=== PATIENT | male | born 1950 | race African-American/Black ===

== ENCOUNTER 2017-02-03 22:26 | Inpatient (IN) | payer MEDICARE ==
--- NOTE | ~2017-02-03 | PN ---
Unit #: [id number] #: [id number] Patient: ZAY GUERRERO [id number] [facility] [address] [place] [address] [id number] MR#: [id number] NAME: ZAY GUERRERO ROOM: P131 Age: 66 Sex: M Admission Date: 02/04/2017 : 1950 Attending Physician: Rodriguez Osorio M.D. Admitting Physician: Rodriguez Osorio M.D. Primary Care Physician: Primary Care Physician Niyah MAGAÑA NOTES DATE OF SERVICE: 02/17/2017 SUBJECTIVE Mr. Guerrero is a 66-year-old male who was seen today and chart was reviewed and case was discussed with the staff. He has been anxious, withdrawn, and rather seclusive to himself. Meanwhile, he has been cooperative with treatment recommendations and has been taking medications and tolerating them fairly well with no reported side effects. MENTAL STATUS EXAMINATION An elderly male who was casually dressed with fair personal hygiene, appears to be in no acute distress or discomfort. He was awake and alert on interaction with intact orientation. His mood was anxious with a congruent affect. He denies any suicidal or homicidal ideations. His insight and judgment remain slightly impaired. TREATMENT PLAN 1. We will continue him on his current treatment protocol. We will monitor his response to the medications and make further adjustments as needed. 2. We will continue to follow up. Dictated by... Jerica Bravo/fabiol TD: 02/18/2017 06:48 JOB #: [id number] FREDY PROGRESS NOTES Page 1 of 1 X Rodriguez Osorio MD PROGRESS NOTE
--- NOTE | ~2017-02-03 | DS ---
Unit #: [id number] #: [id number] [facility] [id number] [facility] [address] [place] [address] [id number] I MR#: [id number] NAME: ZAY GUERRERO ROOM: P131 Age: 66 Sex: M Admission Date: 02/04/2017 : 1950 Discharge Date: 02/18/2017 Attending Physician: Rodriguez Osorio M.D. Primary Care Physician: Primary Care Physician No DISCHARGE SUMMARY IDENTIFYING DATA Mr. Guerrero is a 66-year-old single, disabled, male who is a resident of [place], [place], and was transferred to us from [facility] at [facility]. DISCHARGE DIAGNOSES Psychiatric: Schizoaffective disorder, bipolar type, most recent episode manic with psychosis. Medical: Hypertension, diabetes mellitus, seizure disorder, benign prostatic hypertrophy, history of deep venous thrombosis. Stressors: Moderate psychosocial stressors. HISTORY OF PRESENT ILLNESS Please see initial psychiatric evaluation for details. PAST PSYCHIATRIC HISTORY Please see initial psychiatric evaluation for details. PAST MEDICAL HISTORY Please see initial psychiatric evaluation for details. HOSPITAL COURSE The patient was admitted to the adult psychiatric unit at [facility] and was oriented to the hospital environment. Routine p.r.n. medications were initiated and started back on his home medications, and Depakote and Risperdal were initiated. The patient was seen to be acutely psychotic and manic and delusional. Upon initial presentation, it was difficult to be reasoned with carry on any meaningful conversation and was out of touch with reality, and has history of poor compliance with medication and as such, I recommended the patient to be on a long-acting injectable antipsychotic, however, the patient denied that option, however, he was taking Risperdal and was able to show a really good and therapeutic response and was found out that he does good on Risperdal except that he has history of poor compliance with medications outside of the hospital and once he started doing better, I am reasoned with him again about the importance of long-acting injectable antipsychotic and he was then able to make reasonable conversation was agreeable to that and as such, was given both the loading doses of Invega Sustenna 234 mg intramuscular on day one and 156 mg intramuscular on day 6. Followed by which, it was decided that he will be discharged home and will continue treatment on an outpatient basis or monthly injection through Our long-acting injectable clinic. DISCHARGE MEDICATIONS Unit #: [id number] #: [id number] Patient: ZAY GUERRERO Depakote 1000 mg b.i.d. for mood disorder and Invega Sustenna 156 mg intramuscular every 30 days. DISCHARGE CONDITION Stable. PROGNOSIS Fair. Dictated by... Jerica Bravo/luis TD: 02/18/2017 22:37 JOB #: [id number] DISCHARGE SUMMARY Page 1 of 1 X Rodriguez Osorio MD X DISCHARGE SUMMARY
--- NOTE | ~2017-02-03 | PN ---
Unit #: [id number] #: [id number] Patient: ZAY GUERRERO [id number] [facility] [address] [place] [address] [id number] I MR#: [id number] NAME: ZAY GUERRERO ROOM: P131 Age: 66 Sex: M Admission Date: 02/04/2017 : 1950 Attending Physician: Rodriguez Osorio M.D. Admitting Physician: Rodriguez Osorio M.D. Primary Care Physician: Primary Care Physician Niyah MAGAÑA NOTES DATE OF SERVICE 02/15/2017 DISCUSSION Mr. Guerrero is a 66-year-old male who was seen today. Chart was reviewed and case was discussed with the staff. He has been calmer and rather seclusive to himself but has not shown any agitation or aggression and has been compliant with the treatment recommendations. MENTAL STATUS EXAMINATION An elderly male who is casually dressed with fair personal hygiene, appears to be in no acute distress or discomfort. The patient was awake and alert with impaired attention and concentration. Mood is anxious with congruent affect. He denies any suicidal or homicidal ideations. His insight and judgment remain slightly impaired. TREATMENT PLAN 1. We will continue him on his current medications and treatment protocol. We will monitor his response to the medications and make further adjustments as needed. 2. We will continue to follow up. Dictated by... Rodriguez Osorio M.D. IAA/sarikag TD: 02/15/2017 15:09 JOB #: [id number] PEARUKHSANA PROGRESS NOTES Page 1 of 1 X Rodriguez Osorio MD PROGRESS NOTE
--- NOTE | ~2017-02-03 | PN ---
Unit #: [id number] #: [id number] Patient: ZAY GUERRERO [id number] [facility] [address] [place] [address] [id number] I MR#: [id number] NAME: ZAY GUERRERO ROOM: P131 Age: 66 Sex: M Admission Date: 02/04/2017 : 1950 Attending Physician: Rodriguez Osorio M.D. Admitting Physician: Rodriguez Osorio M.D. Primary Care Physician: Primary Care Physician Niyah DANIEL PROGRESS NOTES DATE OF SERVICE: 02/16/2017 SUBJECTIVE Mr. Guerrero is a 66-year-old male who was seen today and chart was reviewed and case was discussed with the staff. He has been anxious, withdrawn, and rather seclusive to himself, though he has not shown any agitation or aggression, and has been taking the medications and tolerating them fairly well with no reported side effects. MENTAL STATUS EXAMINATION An elderly male who was casually dressed with fair personal hygiene, appears to be in no acute distress or discomfort. He was awake and alert with impaired attention and concentration. His mood was anxious with a congruent affect. He denies any suicidal or homicidal ideations. His insight and judgment remain slightly impaired. TREATMENT PLAN 1. We will continue him on his current treatment protocol. We will monitor his response to the medications and make further adjustments as needed. 2. We will continue to follow up. Dictated by... Jerica Bravo/fabiol TD: 02/18/2017 00:56 JOB #: [id number] FREDY PROGRESS NOTES Page 1 of 1 X Rodriguez Osorio MD PROGRESS NOTE
--- NOTE | ~2017-02-03 | PN ---
Unit #: [id number] #: [id number] Patient: ZAY GUERRERO [id number] [facility] [address] [place] [address] [id number] I MR#: [id number] NAME: ZAY GUERRERO ROOM: P116 Age: 66 Sex: M Admission Date: 02/04/2017 : 1950 Attending Physician: Rodriguez Osorio M.D. Admitting Physician: Jerica Bravo PROGRESS NOTES DATE OF SERVICE: 02/08/2017 SUBJECTIVE Mr. Guerrero is a 66-year-old male, who was seen today and chart reviewed and case was discussed with the staff. He has been anxious, withdrawn, rather seclusive to himself. He has been exhibiting bizarre behavior with looseness of associations and brooks like symptoms. MENTAL STATUS EXAMINATION An elderly male, who was casually dressed with fair personal hygiene, appears to be in no acute distress or discomfort. He was awake and alert with impaired attention and concentration. His mood was anxious with a congruent affect. He denies any suicidal or homicidal ideations. His insight and judgment remain slightly impaired. TREATMENT PLAN 1. We will continue him on his current treatment protocol. We will monitor his response and make further adjustments as needed. 2. We will continue to follow up. Dictated by... Jerica Bravo/fabiol TD: 02/09/2017 20:02 JOB #: [id number] FREDY PROGRESS NOTES Page 1 of 1 X Rodriguez Osorio MD PROGRESS NOTE
--- NOTE | ~2017-02-03 | PN ---
Unit #: [id number] #: [id number] Patient: ZAY GUERRERO [id number] [facility] [address] [place] [address] [id number] I MR#: [id number] NAME: ZAY GUERRERO ROOM: 16 Age: 66 Sex: M Admission Date: 02/04/2017 : 1950 Attending Physician: Rodriguez Osorio M.D. Admitting Physician: Rodriguez Osorio M.D. Primary Care Physician: Primary Care Physician Niyah MAGAÑA NOTES DATE 02/09/2017 DISCUSSION Mr. Guerrero is a 66-year-old, male who was seen today and chart was reviewed and case was discussed with the staff. He has anxious, withdrawn and seclusive to himself still rambling quite a bit though it appears that he has been showing some improvement and has been able to carry on conversation that I comprehend better than I did before and he is making much sense in communication. Meanwhile, he has been taking the medication and tolerating them fairly well with no reported side effects. MENTAL STATUS EXAM An elderly male who was casually dressed with fair personal hygiene, appears to be in no acute distress or discomfort. He was awake and alert with impaired attention and concentration. His mood was anxious with congruent affect. His speech was slow and tangential. Thought processes were disorganized with some looseness of associations and flight of ideas. His insight and judgement remains significantly impaired. TREATMENT PLAN 1. We will continue him on his current medications and treatment protocol. We will monitor his response and make further adjustments as needed. 2. We will continue to follow up. Dictated by... Jerica Bravo/priti TD: 02/10/2017 04:57 JOB #: [id number] Unit #: [id number] #: [id number] Patient: ZAY GUERRERO PROGRESS NOTES Page 1 of 1 X Rodriguez Osorio MD PROGRESS NOTE
--- NOTE | ~2017-02-03 | PN ---
Unit #: [id number] #: [id number] Patient: ZAY GUERRERO [id number] [facility] [address] [place] [address] [id number] I MR#: [id number] NAME: ZAY GUERRERO ROOM: 31 Age: 66 Sex: M Admission Date: 02/04/2017 : 1950 Attending Physician: Rodriguez Osorio M.D. Admitting Physician: Rodriguez Osorio M.D. Primary Care Physician: Primary Care Physician Niyah MAGAÑA NOTES DATE OF SERVICE 02/13/2017 DISCUSSION Mr. Guerrero is a 66-year-old male who was seen today. Chart was reviewed and case was discussed with the staff. He has been doing fairly well and appears to be calming down and still has been maintaining some brooks and psychosis. He does not appear to be as agitated and irritable and delusional as he was on initial presentation and initially has refused to take Invega Sustenna in the early phases of treatment where he was very delusional. However, since he is making more sense now, we discussed the option again, and he is agreeable to take Invega Sustenna. We will recommend initiating the trials and maintaining treatment on outpatient basis as he is scheduled to leave the hospital after the weekend. MENTAL STATUS EXAMINATION An elderly male who is casually dressed with fair personal hygiene, appears to be in no acute distress or discomfort. The patient was awake and alert on interaction with intact orientation. His mood is anxious with congruent affect. He denies any suicidal or homicidal ideations. His insight and judgment remain slightly impaired. TREATMENT PLAN 1. We will continue him on his current treatment protocol. We will monitor his response to the medications and make further adjustments as needed. 2. We will continue to follow up. Dictated by... Jerica Bravo/edna TD: 02/13/2017 12:28 JOB #: [id number] Unit #: [id number] #: [id number] Patient: ZAY GUERRERO PROGRESS NOTES Page 1 of 1 X DevonRodriguez Cadena MD X PROGRESS NOTE
--- NOTE | ~2017-02-03 | PN ---
Unit #: [id number] #: [id number] Patient: ZAY GUERRERO [id number] [facility] [address] [place] [address] [id number] I MR#: [id number] NAME: ZAY GUERRERO ROOM: 16 Age: 66 Sex: M Admission Date: 02/04/2017 : 1950 Attending Physician: Rodriguez Osorio M.D. Admitting Physician: Rodriguez Osorio M.D. Primary Care Physician: Primary Care Physician Niyah MAGAÑA NOTES DATE OF SERVICE 02/05/2017 DISCUSSION Mr. Guerrero is a 66-year-old male who was seen today. Chart was reviewed and case was discussed with the staff. 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 He is difficult to be interrupted and actually has not been able to carry on any meaningful conversation with and is difficult to be reasoned with and at times just difficult to reach to him or interrupt his conversation. Appears to be rather in his own world. Staff reported that he does get agitated and irritable and has been showing some poor frustration tolerance with significant instability in his mood and daily functioning with his persistent psychosis. Medications were just adjusted yesterday, and he has not had time to respond to the medication at this time. MENTAL STATUS EXAMINATION An elderly male who is casually dressed with fair personal hygiene, appears to be in no acute distress or discomfort. He was awake and alert with impaired attention and concentration. His mood is anxious with congruent affect. Speech is slow and restricted in content. Thought process disorganized with some looseness of associations. Her insight and judgment remain significantly impaired. TREATMENT PLAN 1. We will continue him on his current medications and treatment protocol. We will monitor his response and make further adjustments as needed. 2. We will continue to follow up. Dictated by... Jerica Bravo/edna TD: 02/06/2017 10:29 JOB #: [id number] Unit #: [id number] #: [id number] Patient: ZAY GUERRERO PROGRESS NOTES Page 1 of 1 X Rodriguez Osorio MD PROGRESS NOTE
--- NOTE | ~2017-02-03 | HP ---
Unit #: [id number] #: [id number] Patient: SUDHIR DEL CASTILLO [id number] [place] [address] [id number] MR#: [id number] NAME: SUDHIR DEL CASTILLO ROOM: P116 Age: 66 Sex: M Admission Date: 02/04/2017 : 1950 Attending Physician: Rodriguez Osorio M.D. Admitting Physician: Rodriguez Osorio M.D. Primary Care Physician: Primary Care Physician No HISTORY AND PHYSICAL HISTORY OF PRESENT ILLNESS Sudhir is a 66 year old admitted to [address] [place] [address] with psychotic behavior. He is a poor historian so his history is taken from his chart. PAST MEDICAL HISTORY 1. Obesity 2. High blood pressure 3. BPH 4. Hyperlipidemia 5. History of migraine headaches 6. History of benign brain tumor 7. Seizure disorder 8. History of DVT PAST SURGICAL HISTORY 1. Resection benign brain tumor 2. IVC filter placed ALLERGIES Aspirin SOCIAL HISTORY Smokes one pack per day. Denies alcohol. Admits to a history of regular cocaine use. FAMILY HISTORY Medically noncontributory. REVIEW OF SYSTEMS He does not answer questions appropriately. There are no reports of nausea, vomiting or diarrhea. She has had no cough or increased temperature. No reports or indications of chest pain or shortness of breath. CURRENT MEDICATIONS 1. Norvasc 5 mg q day 2. Hytrin 5 mg q day 3. Lipitor 10 mg q day 4. Uroxatral 10 mg q day 5. Depakote 1000 mg b.i.d. 6. Nicotine patch 14 mg q day 7. Fioricet p.r.n. Unit #: [id number] #: [id number] Patient: SUDHIR DEL CASTILLO 8. Vistaril p.r.n. 9. Desyrel p.r.n. 10. Desyrel p.r.n. 11. Milk of Magnesia p.r.n. 12. Maalox p.r.n. 13. Tylenol p.r.n. PHYSICAL EXAMINATION GENERAL: Alert, obese, in no apparent distress. VITAL SIGNS: Blood pressure 138/80, heart rate 80, respirations 16, temperature 98.6. WEIGHT: 249 pounds. HEIGHT: 5'5". SKIN: Warm and dry without rash or lesion. HEENT: Normocephalic. TMs not viewed. Oral and nasal passages clear. Conjunctivae clear. Pupils equal, round and reactive to light and accommodation. Extraocular movements intact. NECK: Supple without lymphadenopathy or thyromegaly. HEART: Regular rate and rhythm without murmur. LUNGS: Clear. ABDOMEN: Soft, nontender. : Not done. EXTREMITIES: No evidence of cyanosis, clubbing or edema. Moves all extremities without focal deficit. NEUROLOGICAL: Unable to complete extended exam. He does move all extremities without focal deficit. 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 IMPRESSION Psychiatric admission RECOMMENDATIONS PSYCHIATRIC: Per psychiatrist. MEDICAL: I see no contraindications to participating in facility's activities. MEDICAL PROGNOSIS Good. MEDICAL CONDITION Stable. Dictated by... Jenifer Aquino P.A.-C. for Jerica Rosa/priti TD: 02/04/2017 23:53 JOB #: [id number] Unit #: [id number] #: [id number] Patient: SUDHIR DEL CASTILLO HISTORY AND PHYSICAL Page 1 of 1 X Jenifer Aquino HISTORY AND PHYSICAL
--- NOTE | ~2017-02-03 | PN ---
Unit #: [id number] #: [id number] Patient: ZAY GUERRERO [id number] [facility] [address] [place] [address] [id number] MR#: [id number] NAME: ZAY GUERRERO ROOM: P131 Age: 66 Sex: M Admission Date: 02/04/2017 : 1950 Attending Physician: Rodriguez Osorio M.D. Admitting Physician: Rodriguez Osorio M.D. Primary Care Physician: Primary Care Physician Niyah DANIEL PROGRESS NOTES DATE 02/14/2017 DISCUSSION Mr. Guerrero is a 66-year-old male who was seen today and chart was reviewed and case was discussed with the staff. He has been anxious, withdrawn and rather seclusive to himself. Meanwhile, he did receive his first loading dose of Invega Sustenna yesterday without any tolerability issues. MENTAL STATUS EXAMINATION An elderly male who was casually dressed with fair personal hygiene and appears to be in no acute distress or discomfort. He was awake and alert with impaired attention and concentration. His mood was anxious with congruent affect. His speech is slow and restricted in content. He denies any suicidal or homicidal ideation. His insight and judgement remains slightly impaired. TREATMENT PLAN 1. Will continue on his current medications and treatment protocol. Will monitor his response to the medications and make further adjustments as needed. 2. Will continue to follow up. Dictated by... Jerica Bravo/barbara TD: 02/14/2017 16:17 JOB #: [id number] Unit #: [id number] #: [id number] Patient: ZAY GUERRERO PROGRESS NOTES Page 1 of 1 X Rodriguez Osorio MD PROGRESS NOTE
--- NOTE | ~2017-02-03 | PA ---
Unit #: [id number] #: [id number] Patient: ZAY GUERRERO [id number] [facility] [address] [place] [address] [id number] I MR#: [id number] NAME: ZAY GUERRERO ROOM: P116 Age: 66 Sex: M Admission Date: 02/04/2017 : 1950 Date of Assessment: 02/04/2017 Attending Physician: Rodriguez Osorio M.D. Admitting Physician: Rodriguez Osorio M.D. Primary Care Physician: Primary Care Physician No PSYCHIATRIC ASSESSMENT IDENTIFYING DATA Mr. Guerrero is a 66-year-old, single, disabled, male, who is a resident of [place], [place], and was self-referred to the hospital on a voluntary basis and was transferred to us from [facility] at [facility]. 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 of the [employer] and was nonsensical throughout the evaluation, rambling with pressured speech, and was tangential and was seen to be manic and seemed to require admission at the hospital and collateral information was brought in, indicated the patient has been sleeping for 1 to 2 hours at night since he came home from the hospital a few days ago and reports the patient has been trying to pick fights with his own mother and that he has been more argumentative for the past 2 days and daughter reports the patient has been ranting and raving at odd hours of the night and daughter reports the patient broke a glass table in the middle of the night trying to get an umbrella 2 nights ago and the patient was unable to get the glass up. The patient reports that he feels like he is on a fast pace and was seen to be hyperverbal with disorganized thoughts, speech and behavior and was seen to be a significant danger to self and others and as such, recommendation for inpatient level of care for safety and stabilization was made and the patient was transferred to us. SUBSTANCE ABUSE HISTORY The patient reports history of experimentation with cocaine and cannabis in the past, but denies any current ongoing substance abuse issues. PAST PSYCHIATRIC HISTORY The patient has had a history of multiple inpatient psychiatric hospitalizations including being at [facility], [facility], [facility], [facility] and [facility], and review of the medical records indicate that he has been diagnosed and treated for schizoaffective bipolar type and is supposed to be on Risperdal and Depakote, but apparently has been noncompliant with medication and as such, has been decompensating. Unit #: [id number] #: [id number] Patient: ZAY GUERRERO PAST MEDICAL HISTORY Hypertension, diabetes mellitus, seizure disorder, benign prostatic hypertrophy, history of DVT. ALLERGIES Aspirin. PERSONAL AND SOCIAL HISTORY A 66-year-old male, who reports that he is single, unemployed, disabled, and lives with his daughter and has fairly decent social support system. MENTAL STATUS EXAMINATION An elderly male, who was casually dressed with fair personal hygiene, appears to be in no acute distress or discomfort. He was awake and alert on interaction with intact orientation. His mood was anxious with a congruent affect. His speech was pressured and tangential. His thought processes were disorganized with some looseness of associations and flight of ideas and paranoid ideations and delusional behavior. His insight and judgment remain significantly impaired. DIAGNOSTIC IMPRESSION Psychiatric: Schizoaffective disorder, bipolar type, most recent episode manic with psychosis. Medical: Hypertension, diabetes mellitus, seizure disorder, benign prostatic hypertrophy, history of deep venous thrombosis. Stressors: Moderate psychosocial stressors. TREATMENT PLAN 1. The patient has presented with a history of chronic mental illness and has been decompensating due to poor compliance with his medications and we will recommend the patient to be a candidate for long-acting injectable antipsychotic and we will also start him on rest of his home medications. We will monitor his response and make further adjustments as needed. 2. Supportive therapy was provided to the patient. 3. Safe, structured, and nourishing environment will be provided. ESTIMATED LENGTH OF STAY 4 to 5 days. ABILITY TO HELP SELF Limited. WILLINGNESS TO HELP SELF The patient appears to be willing to help self. STRENGTHS 1. Communicative. 2. Cooperative. PROBLEMS 1. Chronic dysphoric symptoms. 2. Poor social support system. DISCHARGE CRITERIA Unit #: [id number] #: [id number] Patient: ZAY GUERRERO This will be contingent upon the patient's ability to show resolution of his brooks and psychosis and his ability to stay safe to himself, particularly after discharge from the hospital. Dictated by... Jerica Bravo/luis TD: 02/04/2017 07:45 JOB #: [id number] PSYCHIATRIC ASSESSMENT Page 1 of 1 X Rodriguez Osorio MD X PSYCHIATRIC ASSESSMENT
--- NOTE | ~2017-02-03 | PN ---
Unit #: [id number] #: [id number] Patient: ZAY DEL CASTILLO [id number] [facility] [address] [place] [address] [id number] I MR#: [id number] NAME: ZAY DEL CASTILLO ROOM: P116 Age: 66 Sex: M Admission Date: 02/04/2017 : 1950 Attending Physician: Rodriguez Osorio M.D. Admitting Physician: Rodriguez Osorio M.D. Primary Care Physician: Primary Care Physician Niyah MAGAÑA NOTES DATE OF SERVICE 02/07/2017 DISCUSSION Cesar is a 66-year-old male who was seen today. Chart was reviewed and case was discussed with the staff. The patient remains anxious, withdrawn, depressed, and seclusive to himself. He has been unable to carry on any meaningful conversation and appears to be having flight of ideas and significant paranoia and looseness of associations and has been taking the medications and tolerating them fairly well with no reported side effects. MENTAL STATUS EXAMINATION An elderly white male who is casually dressed with fair personal hygiene, appears to be in no acute distress or discomfort. The patient was awake and alert with impaired attention and concentration. His mood is anxious with congruent affect. Speech is fluent and tangential. His thought process were disorganized with some looseness of associations and flight of ideas. His insight and judgment remain significantly impaired. TREATMENT PLAN 1. We will continue him on his current treatment protocol. We will monitor his response to the medications and make further adjustments as needed. 2. We will continue to follow up. Dictated by... Jerica Bravo/edna TD: 02/11/2017 13:17 JOB #: [id number] Unit #: [id number] #: [id number] Patient: ZAY DEL CASTILLO CLAUDIARUKHSANA PROGRESS NOTES Page 1 of 1 X Rodriguez Osorio MD PROGRESS NOTE
--- NOTE | ~2017-02-03 | PN ---
Unit #: [id number] #: [id number] Patient: ZAY GUERRERO [id number] [facility] [address] [place] [address] [id number] I MR#: [id number] NAME: ZAY GUERRERO ROOM: 16 Age: 66 Sex: M Admission Date: 02/04/2017 : 1950 Attending Physician: Rodriguez Osorio M.D. Admitting Physician: Jerica Bravo PROGRESS NOTES DATE OF SERVICE: 02/06/2017 SUBJECTIVE Mr. Guerrero is a 66-year-old, -[place] male, who is seen today and chart was reviewed and case was discussed with the staff. He has been anxious, withdrawn, and rather seclusive to himself and once again was seen to be exhibiting very bizarre behavior, brooks-like symptoms and was talking constantly without making any sense and quickly shifting from one subject to another, talking about his crystal ball and he knows anything and everything, anything is everything, he can make anything and everything and difficult to be interrupted and being directed. The patient has refused to take Invega Sustenna injection without reported "reason" and has been started back on Risperdal, which he has been selectively compliant with and as such has not been able to show a therapeutic response to medications. MENTAL STATUS EXAMINATION An elderly male, who was casually dressed with fair personal hygiene, appears to be in no acute distress or discomfort. He was awake and alert with impaired attention and concentration. His mood relatively with expansive affect. His speech was pressured and tangential. His thought processes were disorganized with some looseness of associations and flight of ideas. His insight and judgment remain significantly impaired. TREATMENT PLAN 1. We will continue on his current medications and treatment protocol. We will monitor his response to medications and make further adjustments as needed. 2. We will continue to follow up. Dictated by... Jerica Bravo/luis TD: 02/07/2017 13:40 JOB #: [id number] Unit #: [id number] #: [id number] Patient: ZAY GUERRERO PROGRESS NOTES Page 1 of 1 X Rodriguez Osorio MD NOTE
--- NOTE | ~2017-02-03 | PN ---
Unit #: [id number] #: [id number] Patient: ZAY GUERRERO [id number] [facility] [address] [place] [address] [id number] I MR#: [id number] NAME: ZAY GUERRERO ROOM: P131 Age: 66 Sex: M Admission Date: 02/04/2017 : 1950 Attending Physician: Rodriguez Osorio M.D. Admitting Physician: Rodriguez Osorio M.D. Primary Care Physician: Primary Care Physician Niyah DANIEL PROGRESS NOTES DATE 02/12/2017 DISCUSSION Mr. Guerrero is a 66-year-old, male who was seen today and chart was reviewed and case was discussed with the staff. He appears to be calming down though still has been as quite manic with pressured speech, flight of ideas and has been moving from one tangent to another. However, he has not shown any agitation or aggression and has been taking medications and tolerating them fairly well with no reports side effects. MENTAL STATUS EXAM An elderly male who was casually dressed with fair personal hygiene, appears to be in no acute distress or discomfort. He was awake and alert with impaired attention and concentration. His mood was anxious with congruent affect. His speech was fluent and tangential. His thought processes were disorganized with some looseness of associations and flight of ideas. His insight and judgement remains significantly impaired. TREATMENT PLAN 1. We will continue him on his current medications and treatment protocol. We will monitor his response to the medications and make further adjustments as needed. 2. We will continue to follow up. Dictated by... Jerica Bravo/priti TD: 02/13/2017 02:02 JOB #: [id number] Unit #: [id number] #: [id number] Patient: ZAY GUERRERO CLAUDIARUKHSANA PROGRESS NOTES Page 1 of 1 X Rodriguez Osorio MD PROGRESS NOTE
--- NOTE | ~2017-02-03 | PN ---
Unit #: [id number] #: [id number] Patient: ZAY GUERRERO [id number] [facility] [address] [place] [address] [id number] I MR#: [id number] NAME: ZAY GUERRERO ROOM: 16 Age: 66 Sex: M Admission Date: 02/04/2017 : 1950 Attending Physician: Rodriguez Osorio M.D. Admitting Physician: Rodriguez Osorio M.D. Primary Care Physician: Primary Care Physician Niyah MAGAÑA NOTES DATE OF SERVICE 02/07/2017 DISCUSSION Mr. Guerrero is a 66-year-old male who was seen today. Chart was reviewed and case was discussed with the staff. She has been anxious, withdrawn, and rather seclusive to himself, and on interaction once again was seen to be starting off impulsively talking without making much sense and was seen to be difficult to be redirected. Meanwhile, he has been taking the medications and has not been able to show a therapeutic response. MENTAL STATUS EXAMINATION Elderly male who is casually dressed with fair personal hygiene, appears to be in no acute distress or discomfort. He was awake and alert with impaired attention and concentration. His mood is anxious with congruent affect. Speech is fluent and tangential. His thought processes were disorganized with some looseness of associations and flight of ideas. His insight and judgment remain significantly impaired. TREATMENT PLAN 1. We will continue him on his current treatment protocol. We will monitor his response and make further adjustments as needed. 2. We will continue to follow up. Dictated by... Jerica Bravo/dena TD: 02/08/2017 08:09 JOB #: [id number] Unit #: [id number] #: [id number] Patient: ZAY GUERRERO PROGRESS NOTES Page 1 of 1 X Rodriguez Osorio MD PROGRESS NOTE
--- NOTE | ~2017-02-03 | TN ---
Unit #: [id number] #: [id number] Patient: ZAY GUERRERO [id number] [facility] [address] [place] [address] [id number] I MR#: [id number] NAME: ZAY GUERRERO ROOM: P131 Age: 66 Sex: M Admission Date: 02/04/2017 : 1950 Discharge Date: 02/18/2017 Attending Physician: Rodriguez Osorio M.D. Primary Care Physician: Primary Care Physician No LOC TRANSFER NOTE DATE OF SERVICE: 02/19/2017 HISTORY OF PRESENT ILLNESS Mr. Guerrero is a 66-year-old, single, male with history of chronic mental illness, who was stepped down to the outpatient treatment program from the adult inpatient psychiatric unit, where he was hospitalized under my care from 02/04/2017 through 02/18/2017 and was brought to the hospital with acute manic and psychotic state and had been off his Risperdal and was stabilized and Risperdal started back and he started doing good and he was then transitioned to the long-acting injectable Invega Sustenna due to his history of poor compliance with good tolerability and therapeutic response and he was discharged and stepped down to the outpatient treatment program. When seen by me today, the patient was seen to be calm and doing much better with good personal hygiene and looked completely different as compared to his stay in the hospital and reports that he is blasting, he is clicking with his daughter who has been the main support system and that they have been getting along well and that he has been taking his medications and denies any tolerability issues. He was still seen to be rambling at times though he did not appear to be as paranoid and delusional as he was before coming and particularly, no agitation or aggression was noted. Mother was seen to be polite and pleasant. SUBSTANCE ABUSE HISTORY The patient denies any alcohol and drug abuse. PAST PSYCHIATRIC HISTORY The patient has had a history of inpatient and outpatient psychiatric treatment and has been diagnosed and treated for schizoaffective disorder. He is currently on Invega Sustenna along with oral Depakote. PAST MEDICAL HISTORY Significant for migraine headaches, hypertension, dyslipidemia. ALLERGIES Aspirin. PERSONAL AND SOCIAL HISTORY A 66-year-old male, who reports that he lives at home with his daughter who has been the main support system. The patient is retired and disabled. He denies any alcohol and drug abuse. MENTAL STATUS EXAMINATION Unit #: [id number] #: [id number] Patient: ZAY GUERRERO An elderly male, who was casually dressed with a fair personal hygiene, appears to be in no acute distress or discomfort. He was awake and alert on interaction with intact orientation to time, place, and person. His mood was anxious and depressed with a congruent affect. His speech was slow and goal directed. His thought processes were disorganized with some looseness of associations and flight of ideas and paranoid ideations. He denies any suicidal or homicidal ideations and also denies any auditory or visual hallucinations. His insight and judgment remain slightly impaired. DIAGNOSTIC IMPRESSION Psychiatric: Schizoaffective disorder, bipolar type, most recent episode manic with psychosis. Medical: Hypertension and dyslipidemia. Stressors: Moderate psychosocial stressors. TREATMENT PLAN 1. The patient has presented with a history of mood disorder and psychosis. We will recommend enrolling him into the outpatient treatment program and maintaining him on his current medications. We will monitor his response and make further adjustments as needed. 2. Supportive therapy was provided to the patient. ESTIMATED LENGTH OF STAY 14 to 21 days. ABILITY TO HELP SELF Limited. WILLINGNESS TO HELP SELF The patient appears to be willing to help self. STRENGTHS 1. Communicative. 2. Cooperative. PROBLEMS 1. Chronic dysphoric symptoms. 2. Poor social support system. DISCHARGE CRITERIA This will be contingent upon the patient's ability to show resolution of his brooks and psychosis and his ability to stay safe to himself, particularly after discharge from the hospital. Dictated by... Jeirca Bravo/luis TD: 02/21/2017 02:43 JOB #: [id number] Unit #: [id number] #: [id number] Patient: ZAY GUERRERO LOC TRANSFER NOTE Page 1 of 1 X Rodriguez Osorio MD X LOC TRANSFER NOTE
--- NOTE | ~2017-02-03 | PN ---
Unit #: [id number] #: [id number] Patient: ZAY GUERRERO [id number] [facility] [address] [place] [address] [id number] I MR#: [id number] NAME: ZAY GUERRERO ROOM: 16 Age: 66 Sex: M Admission Date: 02/04/2017 : 1950 Attending Physician: Rodriguez Osorio M.D. Admitting Physician: Rodriguez Osorio M.D. Primary Care Physician: Primary Care Physician Niyah MAGAÑA NOTES DATE 02/11/2017 DISCUSSION Mr. Guerrero is a 66-year-old, male who was seen today and charge was reviewed and case was discussed with the staff but reports the patient has been anxious, withdrawn, disorganized and restless and unable to carry on any meaningful conversation and moving from one tangent to another and has been quite bizarre but organize thoughts, speech and behavior. Meanwhile, he has been taking his Risperdal and tolerating it fairly well. MENTAL STATUS EXAM An elderly male who was casually dressed with fair personal hygiene appears to be in no acute distress or discomfort. He was awake, alert with impaired attention to attention and concentration. Homicidal ideation mood was anxious with congruent affect. His speech was fluent and tangential. His thought processes were disorganized with some looseness of associations and flight of ideas and paranoid ideations and delusional behavior. His insight and judgement remains significantly impaired TREATMENT PLAN 1. We will continue him on his current medications and treatment protocol. We will monitor his response to the medication and make further adjustments as needed. 2. We will continue to follow up. Dictated by... Jerica Bravo/priti TD: 02/12/2017 00:52 JOB #: [id number] Unit #: [id number] #: [id number] Patient: ZAY GUERRERO CLAUDIARUKHSANA GÓMEZ NOTES Page 1 of 1 X Rodriguez Osorio MD PROGRESS NOTE
[~2017-02-03 22:26] MED LIST: ALPRAZOLAM PO; ATIVAN PO; COGENTIN PO; DEPACON100 MG/ML PO; DEPAKOTE PO; FIORICET 50-321 EACH PO; FLEXERIL10 M1 PO; MEDROL PO; METFORMIN; RISPERIDONE PO
== END 2017-02-18 11:15 | DRG 885 ==
LOC: P1S 02-04 02:51
DX: F25.0 Schizoaffective disorder, bipolar type (principal); F31.2 Bipolar disorder, current episode manic severe with psychotic features; I10 Essential (primary) hypertension; E11.9 Type 2 diabetes mellitus without complications; G40.909 Epilepsy, unspecified, not intractable, without status epilepticus; N40.0 Benign prostatic hyperplasia without lower urinary tract symptoms; Z86.718 Personal history of other venous thrombosis and embolism; E66.9 Obesity, unspecified; F17.210 Nicotine dependence, cigarettes, uncomplicated; Z88.6 Allergy status to analgesic agent
CPT/HCPCS: J1200; J1630